=== PATIENT | female | born 1990 | race Caucasian/White ===

== ENCOUNTER 2019-01-15 02:13 | Emergency (ER) | payer SELFPAY ==
[~2019-01-15] VITALS: Ht 172.7 cm; Wt 75.4 kg
[~2019-01-15 02:13] MED LIST: CEPH-443 PO; IBUP800T48 PO; ONDA4TAB14 PO
[2019-01-15 02:18] VITALS: Ht 172.7 cm; Wt 75.4 kg
[2019-01-15] MEDS ORDERED: ONDANSETRON (ODT) 4 MG TAB ODT STA (03:44)
[2019-01-15] MEDS ORDERED: KETOROLAC 30 MG INJ IM STA (03:44)
[2019-01-15] MEDS ORDERED: MECLIZINE 12.5 MG TAB PO ONE (04:00)
[2019-01-15 04:35] VITALS: BP 111/73; PULSE 61; RESP 17
== END 2019-01-15 04:39 | disposition home or self-care (01) ==
LOC: FTE 02:13
DX: S06.0X0A Concussion without loss of consciousness, initial encounter (principal); N39.0 Urinary tract infection, site not specified; W22.8XXA Striking against or struck by other objects, initial encounter; Y92.89 Other specified places as the place of occurrence of the external cause
CPT/HCPCS: 70450; 81001; 81025; 87086; 96372; 99285; J1885